=== PATIENT | male | born 2005 | race Caucasian/White ===

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

== ENCOUNTER 2025-06-02 09:48 | Emergency (ER) | payer OTHER, SELFPAY ==
[2025-06-02] VITALS (17 sets, daily range): BP systolic 124–160; BP diastolic 71–94; PULSE 43–83; RESP 10–20; TEMP 37.1; O2SAT 95–100
--- OUTSIDE RECORDS SUMMARY | 2025-06-02 09:56 | XMS_ITS | Encounter Summary ---
Author Organization [facility] Address [address] [place] [address] Phone Care Team Providers Care Signal Intelligence/Electronic Warfare Name Role Phone Katt Zaman Primary Care Provider + Encounter Details Date Type Department Care Team (Late st Contact Info) Description 04/18/2025 Results Follow-Up [facility] [place] [address] [place] [address] Katt Zaman PAC [address] [place] [address] US TESTICULAR WITH COLOR DOPPLER LMT Social History Tobacco Use Types Packs/Day Years Used Date Smoking Tobacco: Never Smokeless Tobacco: Never Alcohol Use Standard Drinks/Week Comments No 0 (1 standard drink = 0.6 oz pur e alcohol) PHQ-2 Answer Date Recorded Total Score - Questions 1-9 1 07/2025 Sex and Gender Information Value Date Recorded Sex Assigned at Not on file Legal Sex Male 8:55 PM CDT Gender Identity Not on file Sexual Orientation Not on file documented as of this encounter Plan of Treatment Upcoming Encounters Date Type Department Care Team (Late st Contact Info) Description 06/03/2025 8:45 AM CDT Office Visit [facility] - Family [facility] [address] [place] [address] Katt Zaman PAC [address] [place] [address] documented as of this encounter Visit Diagnoses Not on filedocumented in this encounter Additional Health Concerns Assessment Noted Time PHQ-9 Depression Total Score: 1 03/11/20 25 8:27 AM CDT documented as of this encounter Care Teams Signal Intelligence/Electronic Warfare Relationship Specialty Start Date End Date Katt Zaman PAC [address] [place] [address] PCP - General Physician Endoscopy Tech 03/11/25 documented as of this encounter
--- OUTSIDE RECORDS SUMMARY | 2025-06-02 09:56 | XMS_ITS | Clinical Summary ---
Author Organization [facility] Address [address] [place] [address] Care Team Providers Care Circuit Clerk Name Role Phone Katt Zaman Primary Care Provider [phone] Source Comments [facility],non-owned Affiliates and Associated Physician Practices is amultiple site organization consisting of ambulatory clinics and hospital sitesin [place], [place]. This disclosure is being madepursuant to the Care Everywhere program and may not contain all information available regarding this patient. Last updated 18.[facility] Allergies No known active allergies Encounters Date Type Department Care Team Description 04/05/2025 12:20 PM CDT - 04/05/2025 11:59 PM CDT Hospital Encounter 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 Gender Identity Not on file Sexual Orientation Not on file Last Filed Vital Signs Vital Sign Reading Time Taken Comments Blood Pressure 132/77 04/05/2025 12:39 PM CDT Pulse 65 04/05/2025 12:39 PM CDT Temperature 37.5 C (99.5 F) 04/05/2025 12:39 PM CDT Respiratory Rate 20 04/05/2025 12:39 PM CDT Oxygen Saturation 97% 04/05/2025 12:39 PM CDT Inhaled Oxygen Concentration - - Weight 136.1 kg (300 lb) 04/05/2025 12:39 PM CDT Height 190.5 cm (6' 3) 04/05/2025 12:39 PM CDT Body Mass Index 37.5 04/05/2025 12:39 PM CDT Plan of Treatment Health Maintenance Due Date Last Done Comments HIV SCREENING 2020 HPV VACCINE (1 - Male 3-dose series) 2020 MENINGOCOCCAL (Group B) VACC INE SHARED DECISION-MAKING (1 of 2 - Standard) 2021 COVID-19 VACCINE (1 - 2023-2 5 season) 2024 HEPATITIS B VACCINE (1 of 3 - 19+ 3-dose series) 2024 DEPRESSION SCREENING 11/03/2024 INFLUENZA VACCINE (#1) 2025 DTAP/TDAP/TD VACCINES (2 - T d or Tdap) 04/05/2035 04/05/2025 ZOSTER VACCINE (1 of 2) 2055 HEPATITIS C SCREENING Completed 12/13/2024 HIB VACCINE Aged Out No longer eligi ble based on patient's age to complete this topic MENINGOCOCCAL GROUPS A/C/Y/W VACCINE Aged Out No longer eligible b ased on patient's age to complete this topic PNEUMOCOCCAL VACCINE Aged Out No long er eligible based on patient's age to complete this topic Insurance [employer] MEDICAID - OUT OF STATE HEALTH CARE MEDICAID - OUT OF STATE PAYOR GENERIC [employer] Care Teams Circuit Clerk Relationship Specialty Start Date End Date Katt Zaman PA [address] [place] [address] PCP - General Physician Interior Design Instructor 04/05/25
--- OUTSIDE RECORDS SUMMARY | 2025-06-02 09:56 | XMS_ITS | Clinical Summary ---
Author Organization [facility] Address [address] [facility], [address] [address] Phone Care Team Providers Care Valver Name Role Phone Katt Zaman Primary Care Provider + Allergies Active Allergy Reactions Criticality Noted Date Comments Lisinopril Other (see Comments) 03/11/2025 Increased blood pressure Medications acetaminophen (TYLENOL) 325 MG TabletIndicatio ns:Left facial pain Take 2 Tabs by mouth every 4 hours as needed for Moderate or more severe pain. 2 Tab 8 Active albuterol (PROVENTIL, VENTOLIN) (2.5 MG/3ML) 0.083% Nebulizer Soln 2.5 mg by Nebulization route. Active albuterol 108 (90 Base) MCG/ACT Aerosol Solution take 1-2 Puffs by inhalation every 4 hours as needed for Wheezing or Cough. 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 [address] [place] [address] Katt Zaman, EDUAR US TESTICULAR WITH COLOR DOPPLER LMT 04/08/2025 3:31 PM CDT - 04/08/2025 11:59 PM CDT Hospital Encounter [facility] Ultrasound [address] [place] [address] Katt Zaman PAC Discharge Disposition: Discharged to home or Selfcare 04/08/2025 Travel 03/11/2025 8:15 AM CDT Office Visit [facility] [address] [place] [address] Katt Zaman PAC Pain in testicle, unspecified laterality (Primary Dx); Chronic pain of both knees Discharge Disposition: Discharged to home or Selfcare 03/11/2025 Travel from Last 3 Months Family History Medical History Relation Name Comments No Known Problems Father No Known Problems Mother Relation Name Status Comments Father Mother Social History Tobacco Use Types Packs/Day Years Used Date Smoking Tobacco: Never Smokeless Tobacco: Never Tobacco Cessation:Counseling Given: No Alcohol Use Standard Drinks/Week Comments No 0 [...] Sign Reading Time Taken Comments Blood Pressure 128/80 03/11/2025 8:29 AM CDT Pulse 76 03/11/2025 8:29 AM CDT Temperature 36.6 C (97.8 F) 03/11/2025 8:29 AM CDT Respiratory Rate 16 03/11/2025 8:29 AM CDT Oxygen Saturation 96% 03/11/2025 8:29 AM CDT Inhaled Oxygen Concentration - - Weight 137.9 kg (304 lb 1.6 oz) 03/11/2025 8:29 AM CDT Height 188 cm (6' 2) 03/11/2025 8:29 AM CDT Body Mass Index 39.04 03/11/2025 8:29 AM CDT Plan of Treatment Upcoming Encounters Date Type Department Care Team (Late st Contact Info) Description 06/03/2025 8:45 AM CDT Office Visit [facility] [place] [address] [place] [address] Katt Zaman, PAC [address] [place] [address] Health Maintenance Due Date Last Done Comments Meningococcal B Immunization (1 of 2 - Standard) 2021 SARS-COV-2 Immunization ( season) 2024 Influenza Immunization (#1) 2025 08/16/2013, 1 11/25/2010 Respiratory Syncytial Virus (RSV) Immunization (Adult) (1 - 1-dose 75+ series) 2080 Hepatitis B Immunization Completed 006, 2005, 2005 Pneumococcal Immunization Combined Aged Out 11/06/2006, 02/05/2006, 2005, Additional history exists No longer eligible based on patient's age to complete this topic Measles Mumps Rubella (MMR) Immunization Discontinued 09/12/2009, 08/07/2006 Polio (IPV) Immunization Discontinued 009, 02/05/2006, 2005, Additional history exists Varicella Immunization Discontinued 09/12/2009, 2005 Human Papillomavirus (HPV) Immunization Completed 05/24/2020, 05/29/2017 Meningococcal Immunization (ACWY) Completed 07/18/2023, 05/29/2017 Hepatitis C Virus (HCV) Screening Completed 12/13/2024 DTaP/Tdap/Td Immunization Discontinued 2024, 05/29/2017, 09/12/2009, Additional history exists TdaP Immunization Completed 04/05/2025, 05/29/2017 Rotavirus Immunization Aged Out No lo nger eligible based on patient's age to complete this topic Procedures Procedure Name Priority Date/Time Associated Diagnosis Comments US TESTICULAR WITH COLOR DOPPLER LMT Routine 04/08/2025 4:05 PM CDT Pain in testicle, unspecified laterality from Last 3 Months Results * US TESTICULAR WITH COLOR DOPPLER LMT (04/08/2025 4:05 PM CDT) Anatomical Region Laterality Modality Abdomen N/A Ultrasound 04/17/2025 5:15 PM CDT Impressions 04/17/2025 5:17 PM CDT IMPRESSION: 1. No evidence of testicular mass or torsion. 2. Small bilateral epididymal cysts. 3. Small left hydrocele. Narrative 04/17/2025 5:17 PM CDT EXAM DESCRIPTION: US TESTICULAR WITH COLOR DOPPLER LMT REASON FOR STUDY: Testicular pain intermittent for 3 weeks. TECHNIQUE: Bedolla scale imaging of the scrotum and testes. COMPARISON: None available FINDINGS: RIGHT: TESTICLE: The right testicle measures 5.2 x 3.2 x 2.7 cm. The right testicle is normal in echotexture and contour with no mass. There is normal blood flow. EPIDIDYMIS: Cyst identified measures 1.1 cm. HYDROCELE OR VARICOCELE: There is no evidence of significant hydrocele or varicocele. HERNIA OR EXTRA-TESTICULAR MASS: There is no evidence of extratesticular mass. OTHER: No other significant finding. LEFT: TESTICLE: The left testicle measures 4.6 x 3.1 x 2.4 cm. The left testicle is normal in echotexture and contour with no mass. There is normal blood flow. EPIDIDYMIS: 0.5 cm cyst. HYDROCELE OR VARICOCELE: Small hydrocele without septation or debris. HERNIA OR EXTRA-TESTICULAR MASS: There is no evidence of extratesticular mass. OTHER: No other significant finding. THIS IS AN ELECTRONICALLY VERIFIED FINAL REPORT 04/17/2025 5:15 PM - Electronically signed by Tyler Ash M.D. RB: FERN Riojas: 04/17/2025 5:15 PM Report ID: [id number] Reading Location: [id number] Procedure Note Tyler Ash MD - 04/17/2025 EXAM DESCRIPTION: US TESTICULAR WITH COLOR DOPPLER LMT REASON FOR STUDY: Testicular pain intermittent for 3 weeks. TECHNIQUE: Bedolla scale imaging of the scrotum and testes. COMPARISON: None available FINDINGS: RIGHT: TESTICLE: The right testicle measures 5.2 x 3.2 x 2.7 cm. The right testicle is normal in echotexture and contour with no mass. There is normal blood flow. EPIDIDYMIS: Cyst identified measures 1.1 cm. HYDROCELE OR VARICOCELE: There is no evidence of significant hydrocele or varicocele. HERNIA OR EXTRA-TESTICULAR MASS: There is no evidence of extratesticular mass. OTHER: No other significant finding. LEFT: TESTICLE: The left testicle measures 4.6 x 3.1 x 2.4 cm. The left testicle is normal in echotexture and contour with no mass. There is normal blood flow. EPIDIDYMIS: 0.5 cm cyst. HYDROCELE OR VARICOCELE: Small hydrocele without septation or debris. HERNIA OR EXTRA-TESTICULAR MASS: There is no evidence of extratesticular mass. OTHER: No other significant finding. THIS IS AN ELECTRONICALLY VERIFIED FINAL REPORT 04/17/2025 5:15 PM - Electronically signed by Tyler Ash M.D. RB: FERN Report ID: [id number] Reading Location: [id number] IMPRESSION: 1. No evidence of testicular mass or torsion. 2. Small bilateral epididymal cysts. 3. Small left hydrocele. Katt Zaman [facility] US ORDERABLES Final Result from Last 3 Months Insurance [employer] MEDICAID [place] Care Teams Valver Relationship Specialty Start Date End Date Katt Zaman PAC [address] [place] [address] PCP - General Physician Project Manager 03/11/25
--- OUTSIDE RECORDS SUMMARY | 2025-06-02 09:57 | XMS_ITS | Clinical Summary ---
Author Organization [facility] Address [facility] access hospital[address] [place] [address] Care Team Providers Care Professor Of Languages Name Role Phone Kyle Shrestha MD Primary Care Provider [phone] Allergies No known active allergies Medications lisinopril (PRINIVIL) 10 MG tabletIndications :Primary hypertension Take 2 tablets (20 mg total) by mouth daily. Active Active Problems Problem Noted Date Diagnosed Date Class 3 severe obesity due t o excess calories with serious comorbidity and body mass index (BMI) of 40.0 to 44.9 in adult 12/13/2024 Patellofemoral pain syndrome of both knees 12/13 OAB (overactive bladder) 12/13/2024 Lactose intolerance 12/13/2024 Family History Medical History Relation Comments Hypertension Maternal Grandmother Prostate Cancer Paternal Grandfather Relation Status Comments Maternal Grandmother Paternal Grandfather Social History Tobacco Use Types Packs/Day Years Used Date Smoking Tobacco: Every Day Cigarettes Passive Smoke Exposure: Current Smokeless Tobacco: Never Tobacco Cessation:Ready to Q uit: No; Counseling Given: Yes Comments:Nicotine Vape Alcohol Use Standard Drinks/Week Comments Yes 10 (1 standard drink = 0.6 oz pu re alcohol) Socially with Family PHQ-2 Answer Date Recorded Patient Health Questionnaire-2 Score 2 12/13/2024 Sex and Gender Information Value Date Recorded Sex Assigned at Male 12/13/2024 9:27 AM FELT HAT POUNCING OPERATOR HAND Legal Sex Male 1:26 PM FELT HAT POUNCING OPERATOR HAND Gender Identity Male 12/13/2024 9:27 AM FELT HAT POUNCING OPERATOR HAND Sexual Orientation Straight 12/13/2024 9: 27 AM FELT HAT POUNCING OPERATOR HAND Last Filed Vital Signs Vital Sign Reading Time Taken Comments Blood Pressure 144/106 12/13/2024 9:54 AM FELT HAT POUNCING OPERATOR HAND Pulse 88 12/13/2024 9:25 AM FELT HAT POUNCING OPERATOR HAND Temperature 36.8 C (98.2 F) 12/13/2024 9:25 AM FELT HAT POUNCING OPERATOR HAND Respiratory Rate 18 12/13/2024 9:25 AM FELT HAT POUNCING OPERATOR HAND Oxygen Saturation 96% 12/13/2024 9:25 AM FELT HAT POUNCING OPERATOR HAND Inhaled Oxygen Concentration - - Weight 139.7 kg (307 lb 14.4 oz) 12/13/2024 9:25 AM FELT HAT POUNCING OPERATOR HAND Height 186.7 cm (6' 1.5) 12/13/2024 9:25 AM FELT HAT POUNCING OPERATOR HAND Body Mass Index 40.07 12/13/2024 9:25 AM FELT HAT POUNCING OPERATOR HAND Plan of Treatment Health Maintenance Due Date Last Done Comments Annual Physical 2008 Meningococcal B Vaccine (1 of 2 - Standard) 2021 COVID-19 Vaccine ( - season) 2024 Pneumococcal Vaccine: Pediatrics (0 to 5 Years) and At-Risk Patients (6 to 49 Years) (1 of 2 - PCV) 2024 11/06/2006, 02/05/2006, 2005, Additional history exists DTaP, Tdap and Td Vaccines (7 - Td or Tdap) 05/29/2027 05/29/2017, 09/12/2009, 11/06/2006, Additional history exists Hepatitis B Vaccines Completed 02/05/2006, 2005, 2005 HPV Vaccines Completed 05/24/2020, 05/29/2017 Meningococcal Vaccine Completed 07/18/2023, 017 Hepatitis C Completed 12/13/2024 PHQ-2 (Physician Maringouin) Completed 12/13/2024 RSV Immunizations Under 20 Months Aged Out No longer eligible based on patient's age to complete this topic Procedures Procedure Name Priority Date/Time Associated Diagnosis Comments HEPATITIS C ANTIBODY W/RFX TO HCV RNA Routine 12/13/2024 1:22 PM FELT HAT POUNCING OPERATOR HAND Lactose intolerance Frequent urination OAB (overactive bladder) Patellofemoral pain syndrome of both knees Class 3 severe obesity due to excess calories with serious comorbidity and body mass index (BMI) of 40.0 to 44.9 in adult ([facility]) Healthcare maintenance Screening for diabetes mellitus (DM) Screening cholesterol level Primary hypertension Need for hepatitis C screening test from Last 3 Months or Most Recently Relevant to Health Maintenance Results * HEPATITIS C ANTIBODY W/RFX TO HCV RNA (12/13/2024 1:22 PM FELT HAT POUNCING OPERATOR HAND) HEPATITIS C AB NON-REACT MAXI NON-REACT MAXI [facility] Comment: HCV antibody was non-reactive. There is no laboratory evidence of HCV infection. In most cases, no further action is required. However, if recent HCV exposure is suspected, a test for HCV RNA (test code 54577) is suggested. For additional information please refer to http://education.Paper Hunter/faq/RFF80f8 (This link is being provided for informational/ educational purposes only.) 12/13/2024 1:22 PM FELT HAT POUNCING OPERATOR HAND 12/13/2024 1:22 PM FELT HAT POUNCING OPERATOR HAND Narrative [facility] - ASUNCION ORDERS - 12/14/2024 5:24 AM FELT HAT POUNCING OPERATOR HAND FASTING:YES FASTING: YES Resulting Agency Comment Performing Organization Information: Site ID: [id number] Name: [facility] Address: [id number] [place] [address] [place] [address] Director: Suze Jack MD Kyle Shrestha MD LABORATORY Final Result [facility] [facility] [id number] [place] [address], from Last 3 Months or Most Recently Relevant to Health Maintenance Insurance [employer] Care Teams Professor Of Languages Relationship Specialty Start Date End Date Kyle Shrestha MD [address] [facility] [address] [place] [address] PCP - General FAMILY PRACTICE 12/13/24
--- NOTE | 2025-06-02 10:27 | ED_ITS ---
HPI - General Adult General Chief complaint: Environmental Exposure Stated complaint: N/V THIS MORNING Time Seen by Provider: 06/02/25 10:17 History of Present Illness HPI narrative: Patient is a 19-year-old male who presents to the ER with concerns for cannabinoid hyperemesis syndrome. He reports he has been diagnosed within the past but stopped using marijuana for approximately 2-3 years. Patient reports he recently started using again, with the last time being last night. He reports his symptoms started this morning, including abdominal nausea, and vomiting. Patient reports his last bowel movement was last night and it was normal for him. He denies any recent fevers, urinary symptoms, or chest pain. Patient denies any other medical history relevant to this ER visit. Related Data Allergies Allergy/AdvReac Type Severity Reaction Status Date / Time No Known Allergies Allergy Verified 06/02/25 11:59 Review of Systems 2 Review of Systems: All systems reviewed & are unremarkable except as noted in HPI and below PMFSH Past Medical History Medical History History of kidney stones Asthma History of constipation Surgical History Surgical History History of tonsillectomy and adenoidectomy Social History Social History Smoking status: Never smoker Exam 2 Narrative: GENERAL: Ill appearing, obese, non-toxic, in no acute distress. HEAD: Normocephalic, atraumatic. NECK: Supple. No adenopathy, no masses. RESPIRATORY: Airway patent, respirations nonlabored. Clear to auscultation bilaterally, no rales, rhonchi, wheezing. CARDIOVASCULAR: Regular rate and rhythm without murmurs, rubs, or gallops. Peripheral pulses 2+ and equal bilaterally. ABDOMINAL: Soft, generalized tenderness, nondistended, no hepatosplenomegaly. Normoactive BS. MUSCULOSKELETAL: Moves all extremities. Strength/ROM intact without gross deformities. SKIN: Warm, dry, normal color. No rashes. NEURO: A&O X3. Speech clear. Cranial nerves II-XII intact. No ataxic movements. PSYCHIATRIC: Appropriate mood and affect. Normal interaction. Course Vital Signs Vital signs: Vital Signs Temperature 37.1 C 07/31/25 10:24 Pulse Rate 74 06/02/25 10:24 Respiratory Rate 15 06/02/25 10:24 Blood Pressure 147/94 H 06/02/25 10:24 Pulse Oximetry 100 06/02/25 10:24 Oxygen Delivery Room Air 06/02/25 10:24 Temperature 37.1 C 06/02/25 10:24 Pulse Rate 72 06/02/25 12:08 Respiratory Rate 15 06/02/25 12:08 Blood Pressure 157/79 H 06/02/25 12:00 Pulse Oximetry 98 06/02/25 12:08 Oxygen Delivery Room Air 06/02/25 10:24 Medical Decision Making MDM Narrative Medical decision making narrative: Patient is a 19-year-old male who presents to the ER with concerns for cannabinoid hyperemesis syndrome. He reports he has been diagnosed within the past but stopped using marijuana for approximately 2-3 years. Patient reports he recently started using again, with the last time being last night. He reports his symptoms started this morning, including abdominal nausea, and vomiting. Patient reports his last bowel movement was last night and it was normal for him. He denies any recent fevers, urinary symptoms, or chest pain. Patient denies any other medical history relevant to this ER visit. Labs Ordered: CBC, CMP, lipase, UA, UDS Imaging Ordered: None necessary Medications Ordered: 1 L normal saline IV bolus, Haldol 5 mg IM Results: Patient's CBC indicates the white blood cell count 13.2. His chemistry indicates a BUN of 6, glucose of 156, bilirubin of 2.1, an ALT of 80. Patient's urinalysis? 3+ ketones. Diagnosis: Cannabinoid hyperemesis 1130- Pt endorses relief of nausea, but continues to experience abdominal cramps. Will give Toradol and morphine IV. Patient Education/Shared MDM: 1250- Results of lab work shared with patient and his mother. He endorses improvement of symptoms following medication administration. Patient strongly advised to maintain hydration status upon discharge and follow-up with his PCP as soon as possible. He will be discharged home with a prescription for Reglan p.o. and capsaicin lotion. Strict return precautions provided. Patient verbalized understanding and is in agreement with plan. Vital signs stable at time of discharge. All questions answered. Differential Diagnosis Differential Diagnosis: Cannabinoid hyperemesis, gastroenteritis, gastritis, urinary tract infection Vital Signs Vital Signs: Vital Signs Temperature 37.1 C 06/02/25 10:24 Pulse Rate 74 06/02/25 10:24 Respiratory Rate 15 06/02/25 10:24 Blood Pressure 147/94 H 06/02/25 10:24 Pulse Oximetry 100 06/02/25 10:24 Oxygen Delivery Room Air 06/02/25 10:24 Temperature 37.1 C 06/02/25 10:24 Pulse Rate 72 06/02/25 12:08 Respiratory Rate 15 06/02/25 12:08 Blood Pressure 157/79 H 06/02/25 12:00 Pulse Oximetry 98 06/02/25 12:08 Oxygen Delivery Room Air 06/02/25 10:24 Lab Data Lab results reviewed: Yes I reviewed the patient's lab results. 06/02/25 10:42 06/02/25 10:42 Labs: Lab Results 06/02/25 06/02/25 Range/Units 10:42 11:35 WBC 13.2 H (4.5-10.0) K/mm3 RBC 5.73 (4.6-6.20) M/mm3 Hgb 16.3 (14.0-18.0) g/dL Hct 46.8 (42.0-52.0) % MCV 81.7 (80-100) fl MCH 28.4 (26-34) pg MCHC 34.8 (32-36) g/dl RDW 12.7 (11.5-14.5) % Plt Count 288 (150-375) k/mm3 MPV 10.6 H (7.4-10.4) fl Immature Gran % (Auto) 0.6 H (0-0.5) % Neut % (Auto) 85.5 H (45.5-73.1) % Lymph % (Auto) 8.5 L (18.3-44.2) % [place] % (Auto) 4.8 (2.6-8.5) % Eos % (Auto) 0.1 (0-4.4) % Baso % (Auto) 0.5 (0.2-1.2) % Lymph # (Auto) 1.12 (0.9-3.2) K/mm3 [place] # (Auto) 0.6 (0.1-0.6) K/mm3 Eos # (Auto) 0.0 (0-0.3) K/mm3 Baso # (Auto) 0.1 (0.0-0.1) K/mm3 Abs Immat Gran (auto) 0.08 H (0.00-0.031) K/mm3 Absolute Neuts (auto) 11.3 H (1.3-6.7) K/mm3 Absolute Nucleated RBC 0.000 (0.0-0.012) K/mm3 Nucleated RBC % 0.0 (0.0-0.2) % Sodium 140 (134-143) mmol/L Potassium 3.8 (3.4-5.0) mmol/L Chloride 106 (98-107) mmol/L Carbon Dioxide 22 (22-30) mmol/L Anion Gap 12 (4-12) mmol/L BUN 6 L (8-21) mg/dL Creatinine 0.85 (0.7-1.3) mg/dL Estim Creat Clear Calc 183 ml/min Estimated GFR > 60 (59 - ) Glucose 156 H (65-110) mg/dL Calcium 10.1 (8.9-10.7) mg/dL Total Bilirubin 2.1 H (0.2-1.3) mg/dL AST 43 (17-59) U/L ALT 80 H (6-50) U/L Alkaline Phosphatase 88 (58-237) U/L Total Protein 7.8 (6.3-8.6) g/dL Albumin 4.8 (3.7-5.6) g/dL Lipase 95 (23-300) U/L Urine Color Yellow (Yellow) Urine Appearance Clear (Clear) Urine pH >=9.0 H (5.0-9.0) Ur Specific [place] 1.017 (1.001-1.035) Urine Protein Trace (Negative) mg/dL Urine Glucose (UA) Negative (Negative) mg/dL Urine Ketones 3+ H (Negative) mg/dL Ur Blood (Man) Negative (Negative) Urine Nitrate Negative (Negative) Urine Bilirubin Negative (Negative) Urine Urobilinogen 1.0 (<2.0) mg/dL Leukocyte Esterase Rfl Negative (Negative) ELENA/UL Urine RBC 0-2 (0-2) /hpf Urine WBC 0-5 (0-3) /hpf Ur Squamous Epith Cells None seen (Few) /hpf Urine Bacteria None seen /hpf Urine Casts 0-2 Urine Opiates Screen Pending Urine Methadone Screen Pending Ur Barbiturates Screen Pending Ur Phencyclidine Scrn Pending Ur Amphetamine Screen Pending U Benzodiazepines Scrn Pending Urine Cocaine Screen Pending U Cannabinoids Screen Pending Discharge Plan Discharge Clinical Impression: Drug-induced nausea and vomiting, Cannabinoid hyperemesis syndrome, Abdominal pain Patient Disposition: Home Condition: Stable Instructions: Antibiotic Form, Cannabis Use Disorder (ED), Abdominal Pain (ED) Additional Instructions: Please return to the ER with any worsening symptoms. Follow-up with primary care provider as needed. Take all medications as prescribed. If your symptoms return please take a hot shower and place capsaicin lotion on your abdomen. You may take Tylenol and Reglan for an pain and nausea control at home. Patient Language: Indonesian Prescriptions: New metoclopramide HCl [Reglan] 10 mg tablet 10 mg PO Q6H PRN (Reason: nausea and vomiting) Qty: 30 0RF capsaicin 0.1 % cream 1 applic topical TID Qty: 56.6 0RF Rx Instructions: do not wash area for at least 30 min after application Follow-up/Referrals: Austyn,YARELIS Coreas [Primary Care Provider] - Stand Alone Forms: Work/School Release IP Time of Disposition: 12:58
[2025-06-02] MEDS: SODIUM CHLORIDE 0.9% IV 1,000 ML 999 ML IV CONT ×2 (10:40→12:10)
[2025-06-02] MEDS: HALOPERIDOL LACTATE 5 MG/ML VIAL IM (10:41)
--- OUTSIDE RECORDS SUMMARY | 2025-06-02 10:44 | XMS_ITS | Clinical Summary ---
Author Organization [facility] Address [facility] [place] [address] Care Team Providers Care Sole Rounder Name Role Phone Kyle Shrestha MD Primary Care Provider [phone] Allergies No known active allergies Medications lisinopril [...] Sex Assigned at Male 12/13/2024 9:27 AM PHOTOGRAPHIC RESTORER Legal Sex Male 1:26 PM PHOTOGRAPHIC RESTORER Gender Identity Male 12/13/2024 9:27 AM PHOTOGRAPHIC RESTORER Sexual Orientation Straight 12/13/2024 9: 27 AM PHOTOGRAPHIC RESTORER Last Filed Vital Signs Vital Sign Reading Time Taken Comments Blood Pressure 144/106 12/13/2024 9:54 AM PHOTOGRAPHIC RESTORER Pulse 88 12/13/2024 9:25 AM PHOTOGRAPHIC RESTORER Temperature 36.8 C (98.2 F) 12/13/2024 9:25 AM PHOTOGRAPHIC RESTORER Respiratory Rate 18 12/13/2024 9:25 AM PHOTOGRAPHIC RESTORER Oxygen Saturation 96% 12/13/2024 9:25 AM PHOTOGRAPHIC RESTORER Inhaled Oxygen Concentration - - Weight 139.7 kg (307 lb 14.4 oz) 12/13/2024 9:25 AM PHOTOGRAPHIC RESTORER Height 186.7 cm (6' 1.5) 12/13/2024 9:25 AM PHOTOGRAPHIC RESTORER Body Mass Index 40.07 12/13/2024 9:25 AM PHOTOGRAPHIC RESTORER Plan of Treatment Health Maintenance Due Date [...] 017 Hepatitis C Completed 12/13/2024 PHQ-2 (Physician Baring) Completed 12/13/2024 RSV Immunizations Under 20 Months Aged Out No longer eligible based on patient's age to complete this topic Procedures Procedure Name Priority Date/Time Associated Diagnosis Comments HEPATITIS C ANTIBODY W/RFX TO HCV RNA Routine 12/13/2024 1:22 PM PHOTOGRAPHIC RESTORER Lactose intolerance Frequent urination OAB (overactive bladder) Patellofemoral pain syndrome of both knees Class 3 severe obesity due to excess calories with serious comorbidity and body mass index (BMI) of 40.0 to 44.9 in adult ([facility]) Healthcare maintenance Screening for diabetes mellitus (DM) Screening cholesterol level Primary hypertension Need for hepatitis C screening test from Last 3 Months or Most Recently Relevant to Health Maintenance Results * HEPATITIS C ANTIBODY W/RFX TO HCV RNA (12/13/2024 1:22 PM PHOTOGRAPHIC RESTORER) HEPATITIS C AB NON-REACT MAXI NON-REACT MAXI [facility] Comment: HCV antibody was non-reactive. There is no laboratory evidence of HCV infection. In most cases, no further action is required. However, if recent HCV exposure is suspected, a test for HCV RNA (test code 58453) is suggested. For additional information please refer to http://education.Jdguanjia/faq/PXF91i3 (This link is being provided for informational/ educational purposes only.) 12/13/2024 1:22 PM PHOTOGRAPHIC RESTORER 12/13/2024 1:22 PM PHOTOGRAPHIC RESTORER Narrative [facility] - ASUNCION ORDERS - 12/14/2024 5:24 AM PHOTOGRAPHIC RESTORER FASTING:YES FASTING: YES Resulting Agency Comment Performing Organization Information: Site ID: [place] Name: [facility] Address: [id number] [place] [address] [place] [address] Director: Suze Jack MD Kyle Shrestha MD LABORATORY Final Result [facility] - ASUNCION ORDERS [facility] [id number] [place] [address], from Last 3 Months or Most Recently Relevant to Health Maintenance Insurance [employer] Care Teams Sole Rounder Relationship Specialty Start Date End Date Kyle Shrestha MD [address] [facility] [address] [place] [address] PCP - General FAMILY PRACTICE 12/13/24
--- OUTSIDE RECORDS SUMMARY | 2025-06-02 10:44 | XMS_ITS | Clinical Summary ---
Author Organization [facility] Address [address] [place] [address] Care Team Providers Care Dumpman Name Role Phone Katt Zaman Primary Care Provider [phone] [facility],non-owned Affiliates and Associated Physician Practices is amultiple site organization consisting of ambulatory clinics and hospital sitesin [place], [place] and [place]. This disclosure is being madepursuant to the Care Everywhere program and may not contain all information available regarding this patient. Last updated 18.[facility] Allergies No known active allergies Encounters Date Type Department Care Team Description 04/05/2025 12:20 PM CDT - 04/05/2025 11:59 PM CDT Hospital Encounter 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
--- OUTSIDE RECORDS SUMMARY | 2025-06-02 10:44 | XMS_ITS | Encounter Summary ---
Author Organization [facility] Address [address] [place] [address] Phone Care Team Providers Care Public Works Supervisor Name Role Phone Katt Zaman Primary Care Provider + Encounter Details Date Type Department Care Team (Late st Contact Info) Description 04/18/2025 Results [place] [facility] [place] [address] [place] [address] Katt Zaman PAC [address] [place] [address] US TESTICULAR WITH COLOR DOPPLER LMT Social [...] Office Visit [facility] [address] [place] [address] Katt Zaman [address] [place] [address] documented as of this encounter Visit Diagnoses Not on filedocumented in this encounter Additional Health Concerns Assessment Noted Time PHQ-9 Depression Total Score: 1 03/11/20 25 8:27 AM CDT documented as of this encounter Care Teams Public Works Supervisor Relationship Specialty Start Date End Date Katt Zaman [address] [place] [address] PCP - General Physician Residential Worker 03/11/25 documented as of this encounter
--- OUTSIDE RECORDS SUMMARY | 2025-06-02 10:44 | XMS_ITS | Clinical Summary ---
Author Organization [facility] Address [address] [facility], [address] [address] Phone Care Team Providers Care Animal Ecologist Name Role Phone Katt Zaman Primary Care [...] Department Care Team Description 05/17/2025 Nurse Triage [facility] [address] [place] [address] Katt Zaman, EDUAR Testicle Pain 04/18/2025 Results Follow-Up [facility] [place], [place] [address] [place] [address] Katt Zaman, EDUAR US TESTICULAR WITH COLOR DOPPLER LMT 04/08/2025 3:31 PM CDT - 04/08/2025 11:59 PM CDT Hospital Encounter [facility] [address] [place] [address] Katt Zaman PAC Discharge Disposition: Discharged to home or Selfcare 04/08/2025 Travel 03/11/2025 8:15 AM CDT Office Visit [facility] [place], [place] [address] [place] [address] Katt Zaman PAC Pain in testicle, unspecified [...] [facility] [place] [address] [place] [address] Katt Zaman, PAC [address] [place] [address] Health Maintenance Due Date Last Done Comments [...] FERN Riojas: 04/17/2025 5:15 PM Report ID: [id number] Reading Location: [id number] Procedure Note Tyler Ash MD - 04/17/2025 [...] Tyler Ash M.D. RB: FERN Report ID: [id number] Reading Location: [id number] IMPRESSION: 1. No evidence of testicular mass or torsion. 2. Small bilateral epididymal cysts. 3. Small left hydrocele. Katt Zaman [facility] US ORDERABLES Final Result from Last 3 Months Insurance [employer] MEDICAID [place] Care Teams Animal Ecologist Relationship Specialty Start Date End Date Katt Zaman PAC [address] [place] [address] PCP - General Physician Shop Hand 03/11/25
[2025-06-02 10:49] LABS: Hematocrit 46.8 % (42.0-52.0); Hemoglobin 16.3 g/dL (14.0-18.0); Immature Granulocyte Percent A 0.6 % (0-0.5); Lymphocytes Absolute Auto 1.12 K/mm3 (0.9-3.2); Mean Corpuscular HGB Conc 34.8 g/dl (32-36); Mean Corpuscular Hemoglobin 28.4 pg (26-34); Mean Corpuscular Volume 81.7 fl (80-100); Nucleated Red Blood Cells Absolute Auto 0.000 K/mm3 (0.0-0.012); Nucleated Red Blood Cells Perc 0.0 % (0.0-0.2); Platelet Count Result 288 k/mm3 (150-375); Red Blood Count 5.73 M/mm3 (4.6-6.20); White Blood Count 13.2 K/mm3 (4.5-10.0)
[2025-06-02 11:15] LABS: Alanine Aminotransferase 80 U/L (6-50); Albumin Level 4.8 g/dL (3.7-5.6); Alkaline Phosphatase 88 U/L (58-237); Anion Gap 12 mmol/L (4-12); Aspartate Amino Transferase 43 U/L (17-59); Bilirubin,Total 2.1 mg/dL (0.2-1.3); Blood Urea Nitrogen 6 mg/dL (8-21); Calcium 10.1 mg/dL (8.9-10.7); Carbon Dioxide 22 mmol/L (22-30); Chloride 106 mmol/L (98-107); Estimated CRCL calculation 183 ml/min; Estimated Glomerular Filt Rate > 60; Glucose 156 mg/dL (65-110); Lipase 95 U/L (23-300); Potassium 3.8 mmol/L (3.4-5.0); Sodium 140 mmol/L (134-143); Total Protein 7.8 g/dL (6.3-8.6)
[2025-06-02] MEDS: KETOROLAC 15 MG/ML VIAL (*BKC) IV PUSH (11:44)
[2025-06-02] MEDS: MORPHINE SULFATE (*CRX) 4 MG/ML INJ IV PUSH (11:46)
[2025-06-02 11:47] LABS: Add Urine Microscopic? YES; Appearance Urine Clear (Clear); Glucose Urine UA Negative (Negative); Leukocyte Esterase Ur Negative LEU/UL (Negative); Nitrate Urine Negative (Negative); Non Pathogenic Casts 0-2; Specific Grav Ur 1.017 (1.001-1.035)
--- NOTE | 2025-06-02 12:06 | ECG_ITS ---
Test Date: 2025-06-02 12:14:16 Measurements Intervals [place] Rate: 49 P: 15 [place]: 140 QRS: 49 QRSD: 98 T: 60 QT: 466 QTc: 421 Interpretive Statements SINUS BRADYCARDIA WITH MARKED SINUS ARRHYTHMIA ABNORMAL ECG No previous ECG available for comparison Electronically Signed On 06-03-2025 06:01:09 CDT by Nicolás Jackson D.O.
--- NOTE | 2025-06-02 12:20 | PC.NURSE ---
After pt received morphine IV per JAN, pt got slightly diaphoretic and started having bradycardic episodes down to 43bpm. Pt reported feeling drowsy and relaxed with pain improvement, but denied feeling dizzy, lightheaded, nauseous, or having any cardiac symptoms. Pt remained A&Ox4 throughout episodes, BP rechecked multiple times and very similar to pt's previous blood pressures. Pt reports he had never had morphine before. After RN staying in room a few patients, discussed these symptoms with LLOYD Bundy. Additional IV fluids started and EKG completed. Pt and his mom at bedside instructed to press call button to let RN know if there are any new or worsening symptoms. Pt remains on monitor. Adverse reaction added to pt's allergy list.
[2025-06-02 12:55] LABS: Cannabinoid Screen Urine Positive (Negative)
== END 2025-06-02 13:25 | disposition home or self-care (01) ==
PROVIDERS: Emergency Provider Registered Nurse; PCP Physician Assistant
DX: R11.2 Nausea with vomiting, unspecified (principal); R10.84 Generalized abdominal pain; F12.90 Cannabis use, unspecified, uncomplicated; J45.909 Unspecified asthma, uncomplicated; Z87.442 Personal history of urinary calculi
CPT/HCPCS: 36415; 80053; 80307; 81001; 83690; 85025; 93005; 96361; 96372; 96374; 96375; 99284; J1630; J1885; J2270; J7030